=== PATIENT | female | born 1975 | race Caucasian/White ===

== ENCOUNTER → 2016-10-03 | Outpatient (REF) | payer BC ==
[2016-10-03 13:32] LABS: FREE T4 2.08 NG/DL (0.76-1.46)
== END | disposition home or self-care (01) ==
LOC: M LABDRAWP 12:10
PROVIDERS: ATTEND Internal Medicine Endocrinology, Diabetes & Metabolism
DX: E03.9 Hypothyroidism, unspecified (principal)

== ENCOUNTER → 2016-10-03 | Outpatient (REF) | payer BC ==
[2016-10-03 11:33] LABS: ALBUMIN 3.7 GM/DL (3.2-5.2); ALBUMIN/GLOBULIN RATIO 1.16 (1.00-1.93); ALKALINE PHOSPHATASE 45 U/L (45-117); ALT/SGPT 23 U/L (12-78); ANION GAP 11 MEQ/L (8-16); AST/SGOT 17 U/L (15-37); BILIRUBIN,TOTAL 0.6 MG/DL (0.2-1.0); BLOOD UREA NITROGEN 10 MG/DL (7-18); CALCIUM LEVEL 8.9 MG/DL (8.5-10.1); CARBON DIOXIDE LEVEL 20 MEQ/L (21-32); CHLORIDE LEVEL 111 MEQ/L (98-107); CHOLESTEROL LEVEL 166 MG/DL (<200); CREATININE FOR GFR 0.91 MG/DL (0.55-1.02); FREE T4 2.06 NG/DL (0.76-1.46); GLOMERULAR FILTRATION RATE > 60.0 (>58); GLUCOSE, FASTING 91 MG/DL (70-105); POTASSIUM SERUM 3.9 MEQ/L (3.5-5.1); SODIUM LEVEL 142 MEQ/L (136-145); TOTAL PROTEIN 6.9 GM/DL (6.4-8.2); TRIGLYCERIDES LEVEL 200 MG/DL (<150)
== END | disposition home or self-care (01) ==
LOC: M SFHCPLAZ 08:02
PROVIDERS: ATTEND Physician Assistant
DX: E78.4 Other hyperlipidemia (principal); E03.9 Hypothyroidism, unspecified

== ENCOUNTER → 2016-10-10 | Outpatient (REF) | payer BC | END | disposition home or self-care (01) | LOC: M SFHCWAGY 13:22 | PROVIDERS: ATTEND Nurse Practitioner Women's Health | DX: Z12.4 Encounter for screening for malignant neoplasm of cervix (principal) ==

== ENCOUNTER → 2017-01-04 | Outpatient (REF) | payer BC ==
[2017-01-04 18:30] LABS: FREE T4 1.28 NG/DL (0.76-1.46)
== END ==
LOC: M LABDRAWP 16:44
PROVIDERS: ATTEND Internal Medicine Endocrinology, Diabetes & Metabolism
DX: E03.9 Hypothyroidism, unspecified (principal)

== ENCOUNTER → 2017-01-04 | Outpatient (REF) | payer BC | LOC: M SFHCPLAZ 15:44 | PROVIDERS: ATTEND Physician Assistant | DX: R53.83 Other fatigue (principal); M79.1 Myalgia ==

== ENCOUNTER → 2017-01-04 | Outpatient (REF) | payer BC ==
[2017-01-04 17:47] LABS: MEAN CORPUSCULAR HEMOGLOBIN 32.7 pg (27.0-33.0); MEAN CORPUSCULAR HGB CONC 34.7 g/dl (32.0-36.5); MEAN CORPUSCULAR VOLUME 94.3 fl (80.0-96.0); RED CELL DISTRIBUTION WIDTH 11.9 % (11.5-14.5); WHITE BLOOD COUNT 7.8 K/mm3 (4.0-10.0)
[2017-01-04 18:21] LABS: ALBUMIN 3.6 GM/DL (3.2-5.2); ALBUMIN/GLOBULIN RATIO 0.97 (1.00-1.93); BILIRUBIN,DIRECT 0.1 MG/DL (0.0-0.2); BILIRUBIN,TOTAL 0.5 MG/DL (0.2-1.0); TOTAL PROTEIN 7.3 GM/DL (6.4-8.2)
== END ==
LOC: M LABDRAWP 16:43
PROVIDERS: ATTEND Psychiatry & Neurology Psychiatry
DX: Z51.81 Encounter for therapeutic drug level monitoring (principal); Z79.899 Other long term (current) drug therapy; M79.1 Myalgia; R53.83 Other fatigue

== ENCOUNTER → 2017-02-25 | Outpatient (REF) | payer BC ==
[2017-02-25 16:32] LABS: CHOLESTEROL LEVEL 204 MG/DL (<200); GLUCOSE, FASTING 141 MG/DL (70-105); TRIGLYCERIDES LEVEL 410 MG/DL (<150)
== END ==
LOC: M LABDRAWP 15:30
PROVIDERS: ATTEND Psychiatry & Neurology Psychiatry
DX: Z51.81 Encounter for therapeutic drug level monitoring (principal); Z79.899 Other long term (current) drug therapy

== ENCOUNTER → 2017-09-20 | Outpatient (CLI) | payer BC ==
[2017-09-20 20:54] LABS: THYROID STIMULATING HORMONE 0.013 uIU/ML (0.358-3.740)
== END ==
LOC: M WUC 16:25
DX: E03.9 Hypothyroidism, unspecified (principal)
CPT/HCPCS: 84443

== ENCOUNTER → 2017-12-06 | Outpatient (CLI) | payer BC ==
[2017-12-06 20:43] LABS: THYROID STIMULATING HORMONE 0.018 uIU/ML (0.358-3.740)
== END ==
LOC: M WUC 16:57
DX: E03.9 Hypothyroidism, unspecified (principal)

== ENCOUNTER → 2018-02-19 | Outpatient (REF) | payer BC ==
[2018-02-19 16:29] LABS: PROLACTIN 5.3 NG/ML
[2018-02-19 16:31] LABS: FREE T4 1.53 NG/DL (0.76-1.46); THYROID STIMULATING HORMONE 0.046 uIU/ML (0.358-3.740)
== END ==
LOC: M SFHCWAGY 13:56
DX: Z12.4 Encounter for screening for malignant neoplasm of cervix (principal)
CPT/HCPCS: 84146

== ENCOUNTER → 2018-02-24 | Outpatient (CLI) | payer BC | LOC: M RAD 15:04 | DX: R92.8 Other abnormal and inconclusive findings on diagnostic imaging of breast (principal) | CPT/HCPCS: 77066 ==

== ENCOUNTER → 2018-04-01 | Outpatient (CLI) | payer BC ==
[2018-04-01 19:46] LABS: FREE T4 1.12 NG/DL (0.76-1.46)
[2018-04-01 19:46] LABS: THYROID STIMULATING HORMONE 0.982 uIU/ML (0.358-3.740)
== END ==
LOC: M WUC 17:35
DX: E03.9 Hypothyroidism, unspecified (principal)
CPT/HCPCS: 84443

== ENCOUNTER → 2018-05-26 | Outpatient (CLI) | payer BC ==
[~2018-05-26] MED LIST: PROHANCE 279.3MG/ML 15ML VIAL (A9576) As Ordered; PROHANCE 279.3MG/ML 5ML VIAL (A9576) As Ordered
== END ==
LOC: M RAD 11:11
DX: G43.009 Migraine without aura, not intractable, without status migrainosus (principal)
CPT/HCPCS: A9576

== ENCOUNTER → 2018-06-02 | Outpatient (CLI) | payer BC ==
[2018-06-02 13:42] LABS: BASO % 0.4 % (0.0-1.0); EOS # 0.1 10^3/uL (0.0-0.50); EOS % 0.9 % (0.0-3.0); HEMATOCRIT 39.4 % (36.0-47.0); HEMOGLOBIN 13.9 g/dl (12.0-15.5); IMMATURE GRANULOCYTE % 0.7 % (0-3.0); LYMPH # 1.9 10^3/uL (1.5-4.5); LYMPH % 20.7 % (24.0-44.0); MEAN CORPUSCULAR HGB CONC 35.3 g/dl (32.0-36.5); MEAN CORPUSCULAR VOLUME 90.8 fl (80.0-96.0); MONO # 0.6 10^3/uL (0.0-0.8); MONO % 6.2 % (0.0-5.0); NEUTROPHILS # 6.4 10^3/uL (1.8-7.7); NEUTROPHILS % 71.1 % (36.0-66.0); PLATELET COUNT, AUTOMATED 252 10^3/uL (150-450); RED BLOOD COUNT 4.34 10^6/uL (4.00-5.40); RED CELL DISTRIBUTION WIDTH 11.8 % (11.5-14.5)
[2018-06-02 14:00] LABS: ALBUMIN/GLOBULIN RATIO 1.25 (1.00-1.93); ALKALINE PHOSPHATASE 50 U/L (45-117); ALT/SGPT 21 U/L (12-78); ANION GAP 8 MEQ/L (8-16); AST/SGOT 14 U/L (7-37); BILIRUBIN,TOTAL 0.7 MG/DL (0.2-1.0); BLOOD UREA NITROGEN 10 MG/DL (7-18); CALCIUM LEVEL 9.2 MG/DL (8.5-10.1); CARBON DIOXIDE LEVEL 23 MEQ/L (21-32); CHLORIDE LEVEL 109 MEQ/L (98-107); GLOMERULAR FILTRATION RATE > 60.0 (>58); GLUCOSE, FASTING 87 MG/DL (70-100); LIPASE 152 U/L (73-393); POTASSIUM SERUM 4.3 MEQ/L (3.5-5.1); SODIUM LEVEL 140 MEQ/L (136-145); TOTAL PROTEIN 7.2 GM/DL (6.4-8.2)
== END ==
LOC: M WUC 10:30
DX: R10.811 Right upper quadrant abdominal tenderness (principal)
CPT/HCPCS: 83690

== ENCOUNTER → 2018-06-04 | Outpatient (CLI) | payer BC | LOC: M RAD 08:44 | DX: R10.9 Unspecified abdominal pain (principal) | CPT/HCPCS: 76705 ==

== ENCOUNTER → 2018-12-26 | Outpatient (CLI) | payer BC ==
[2018-12-26 17:30] LABS: FREE T4 1.58 NG/DL (0.76-1.46); THYROID STIMULATING HORMONE 0.07 uIU/ML (0.358-3.740)
== END ==
LOC: M WUC 14:46
PROVIDERS: ATTEND Nurse Practitioner Family
DX: E03.9 Hypothyroidism, unspecified (principal)

== ENCOUNTER → 2019-03-11 | Outpatient (REF) | payer BC ==
[2019-03-11 16:14] LABS: FREE T4 0.33 NG/DL (0.76-1.46); THYROID STIMULATING HORMONE 97.3 uIU/ML (0.358-3.740)
== END ==
LOC: M LABDRAW1 14:03
PROVIDERS: ATTEND Nurse Practitioner Family
DX: E03.9 Hypothyroidism, unspecified (principal)

== ENCOUNTER → 2019-04-09 | Outpatient (CLI) | payer BC ==
[2019-04-09 19:55] LABS: FREE T4 0.99 NG/DL (0.76-1.46); THYROID STIMULATING HORMONE 6.53 uIU/ML (0.358-3.740)
== END ==
LOC: M WUC 16:01
PROVIDERS: ATTEND Nurse Practitioner Family
DX: E03.9 Hypothyroidism, unspecified (principal)

== ENCOUNTER → 2019-06-10 | Outpatient (CLI) | payer BC ==
[2019-06-10 20:41] LABS: FREE T4 1.29 NG/DL (0.76-1.46); THYROID STIMULATING HORMONE 0.531 uIU/ML (0.358-3.740)
[2019-06-10 20:42] LABS: PROLACTIN 7.1 NG/ML
== END ==
LOC: M WUC 15:27
PROVIDERS: ATTEND Nurse Practitioner Family
DX: O92.6 Galactorrhea (principal); O99.280 Endocrine, nutritional and metabolic diseases complicating pregnancy, unspecified trimester

== ENCOUNTER → 2019-10-13 | Outpatient (CLI) | payer BC ==
[2019-10-13 12:54] LABS: FREE T4 1.57 NG/DL (0.76-1.46); THYROID STIMULATING HORMONE 15.8 uIU/ML (0.358-3.740)
== END ==
LOC: M WUC 10:19
PROVIDERS: ATTEND Nurse Practitioner Family
DX: E03.9 Hypothyroidism, unspecified (principal)

== ENCOUNTER → 2019-12-31 | Outpatient (REF) | payer BC | LOC: M SFHCWAGY 10:13 | PROVIDERS: ATTEND Nurse Practitioner Women's Health | DX: Z12.4 Encounter for screening for malignant neoplasm of cervix (principal) | CPT/HCPCS: 87624; G0123 ==

== ENCOUNTER → 2020-01-11 | Outpatient (CLI) | payer BC ==
--- NOTE | 2020-01-11 13:50 | REPMRS ---
Patient History The patient states she had a clinical breast exam in December 2019. No known family history of cancer. Reductions of both breasts, 2002. Taking hormonal contraceptives for 16 years. Digital Woman Screen Mammo: January 11, 2020 - Exam #: [id number] Bilateral CC and MLO view(s) were taken. Technologist: Miguelina Remy, Technologist Prior study comparison: February 24, 2018, digital mammo diagnostic bilateral, performed at [facility]. FINDINGS: There are scattered fibroglandular densities. The Volpara volumetric breast density category is:B. There has been no change in the appearance of the mammogram from the prior studies. There is a mild amount of scattered fibroglandular density which is fairly symmetric. There is no interval development of dominant mass, architectural distortion, or grouped microcalcification suggestive of malignancy. 3-D tomosynthesis shows no additional findings. Assessment: BI-RADS/ACR category 1 mammogram. Negative Mammogram. Recommendation Routine screening mammogram of both breasts in 1 year (for women over age 40). This patient's Lifetime Breast Cancer Risk is estimated at 8.7 %. This mammogram was interpreted with the aid of an FDA-approved computer-aided dectection system. Electronically Signed By: Cl Andrews MD 01/11/20 [id number]
== END ==
LOC: M WHC 12:57
PROVIDERS: ATTEND Nurse Practitioner Women's Health
DX: Z12.31 Encounter for screening mammogram for malignant neoplasm of breast (principal)

== ENCOUNTER → 2020-05-24 | Outpatient (CLI) | payer BC ==
[2020-05-24 19:45] LABS: FREE T4 1.98 NG/DL (0.76-1.46); THYROID STIMULATING HORMONE 0.006 uIU/ML (0.358-3.740)
== END ==
LOC: M WUC 17:37
PROVIDERS: ATTEND Nurse Practitioner Family
DX: E03.9 Hypothyroidism, unspecified (principal)

== ENCOUNTER → 2020-08-31 | Outpatient (CLI) | payer BC ==
[2020-08-31 16:51] LABS: FREE T4 1.33 NG/DL (0.76-1.46); THYROID STIMULATING HORMONE 1.82 uIU/ML (0.358-3.740)
[2020-08-31 16:57] LABS: PROLACTIN 4.7 NG/ML
== END ==
LOC: M WUC 11:25
PROVIDERS: ATTEND Nurse Practitioner Family
DX: E03.9 Hypothyroidism, unspecified (principal)

== ENCOUNTER → 2021-02-07 | Outpatient (REF) | payer BC | LOC: M SFHCWAGY 18:44 | PROVIDERS: ATTEND Nurse Practitioner Women's Health | DX: Z12.4 Encounter for screening for malignant neoplasm of cervix (principal) ==

== ENCOUNTER → 2021-02-07 | Outpatient (CLI) | payer BC | LOC: M WHC 14:31 | PROVIDERS: ATTEND Nurse Practitioner Women's Health | DX: Z12.31 Encounter for screening mammogram for malignant neoplasm of breast (principal); Z53.9 Procedure and treatment not carried out, unspecified reason ==

== ENCOUNTER → 2021-02-27 | Outpatient (CLI) | payer BC ==
--- NOTE | 2021-02-27 15:37 | REPMRS ---
Patient History The patient states she had a clinical breast exam in January 2021. No known family history of cancer. Reductions of both breasts, 2001. Taking hormonal contraceptives for 17 years. Patient states no breast complaints today. Patient has signed MRS History Sheet. Digital Woman Screen Mammo: February 27, 2021 - Exam #: [id number] Bilateral CC and MLO view(s) were taken. Technologist: Radha Moreno, Technologist Prior study comparison: January 11, 2020, bilateral digital woman screen mammo performed at [facility]. February 24, 2018, digital mammo diagnostic bilateral, performed at [facility]. FINDINGS: There are scattered fibroglandular densities. Screening. Digital screening (2D) mammography was performed bilaterally in the CC and MLO projections. Additionally, breast tomosynthesis (3D mammography) was performed bilaterally in the CC and MLO projections. Todays exam was compared to the prior exam/exams. By history, the patient has no complaints of a palpable breast abnormality or other significant breast complaints. The breasts are unchanged in size and shape. There are no tremaine-soft tissue densities or spiculated masses. There is no internal architectural distortion. There are no suspicious tremaine-calcific clusters. Skin thickening or nipple retraction is not present. IMPRESSION: BI-RADS Category 2- Benign Findings. There is no evidence of malignant alteration of the breasts. Followup examination recommended in one year. The Volpara volumetric breast density category is B, there are scattered areas of fibroglandular densities. This mammogram was read with the assistance of [employer],an FDA approved computer aided detection system for mammography. The lifetime Tyrer-Cuzick score is 8.6 % Negative x-ray reports should not delay surgical consultation if a dominant or clinically suspicious mass is present. Not all breast cancers can be identified by mammography. Therefore, we recommend that you continue to perform regular breast self-examination and physical examination and then promptly contact your physician of any concerns or changes. Adenosis and dense breasts may obscure an underlying neoplasm. Assessment: BI-RADS/ACR category 2 mammogram. Benign Findings. Recommendation Routine screening mammogram of both breasts in 1 year. Electronically Signed By: Karson Barahona DO 02/27/21 [id number]
== END ==
LOC: M WHC 14:31
PROVIDERS: ATTEND Nurse Practitioner Women's Health
DX: Z12.31 Encounter for screening mammogram for malignant neoplasm of breast (principal)

== ENCOUNTER → 2021-04-17 | Outpatient (CLI) | payer BC ==
[2021-04-17 17:12] LABS: FREE T4 1.06 NG/DL (0.76-1.46); THYROID STIMULATING HORMONE 1.35 uIU/ML (0.358-3.740)
== END ==
LOC: M WUC 11:28
PROVIDERS: ATTEND Nurse Practitioner Family
DX: E03.9 Hypothyroidism, unspecified (principal)

== ENCOUNTER → 2021-09-05 | Outpatient (CLI) | payer BC ==
[2021-09-05 16:55] LABS: FREE T4 0.88 NG/DL (0.76-1.46); THYROID STIMULATING HORMONE 19.2 uIU/ML (0.358-3.740)
== END ==
LOC: M WUC 13:26
PROVIDERS: ATTEND Nurse Practitioner Family
DX: E03.9 Hypothyroidism, unspecified (principal); O92.6 Galactorrhea

== ENCOUNTER → 2022-01-22 | Outpatient (REF) | payer BC ==
[2022-01-22 13:45] LABS: FREE T4 1.29 NG/DL (0.76-1.46); THYROID STIMULATING HORMONE 0.292 uIU/ML (0.358-3.740)
== END ==
LOC: M WUC 12:25
PROVIDERS: ATTEND Nurse Practitioner Family
DX: E03.9 Hypothyroidism, unspecified (principal)

== ENCOUNTER → 2022-04-30 | Outpatient (CLI) | payer BC ==
[2022-04-30 12:21] LABS: FREE T4 1.57 NG/DL (0.76-1.46); THYROID STIMULATING HORMONE 0.142 uIU/ML (0.358-3.740)
[2022-04-30 13:08] LABS: THYROID PEROXIDASE ANTIBODY 47.3 U/ML (<60.0)
== END ==
LOC: M WUC 09:46
PROVIDERS: ATTEND Ophthalmology
DX: E03.9 Hypothyroidism, unspecified (principal)

== ENCOUNTER → 2022-08-22 | Outpatient (CLI) | payer BC ==
[2022-08-22 12:54] LABS: FREE T4 1.12 NG/DL (0.89-1.76); THYROID STIMULATING HORMONE 5.476 uIU/ML (0.55-4.78)
== END ==
LOC: M WUC 10:07
PROVIDERS: ATTEND Nurse Practitioner Family
DX: E03.9 Hypothyroidism, unspecified (principal)

== ENCOUNTER → 2022-12-27 | Outpatient (REF) | payer BC | LOC: M SFHCWAGY 10:19 | PROVIDERS: ATTEND Nurse Practitioner Family | DX: Z01.419 Encounter for gynecological examination (general) (routine) without abnormal findings (principal); Z12.4 Encounter for screening for malignant neoplasm of cervix; Z77.9 Other contact with and (suspected) exposures hazardous to health ==

== ENCOUNTER → 2023-04-29 | Outpatient (CLI) | payer BC ==
[2023-04-30 11:16] LABS: HEMATOCRIT 42.2 % (36.0-47.0); HEMOGLOBIN 14.5 g/dl (12.0-15.5); MEAN CORPUSCULAR HGB CONC 34.4 g/dl (32.0-36.5); MEAN CORPUSCULAR VOLUME 90.4 fl (80.0-96.0); PLATELET COUNT, AUTOMATED 277 10^3/uL (150-450); RED BLOOD COUNT 4.67 10^6/uL (4.00-5.40); WHITE BLOOD COUNT 10.6 10^3/uL (4.0-10.0)
[2023-04-30 11:43] LABS: ALBUMIN 3.9 G/DL (3.2-5.2); ALKALINE PHOSPHATASE 64 U/L (46-116); ALT/SGPT 17 U/L (7.0-40); AST/SGOT 10 U/L (<34); BILIRUBIN,TOTAL 0.4 MG/DL (0.3-1.2); BLOOD UREA NITROGEN 11 MG/DL (9-23); CALCIUM LEVEL 9.3 MG/DL (8.5-10.1); CARBON DIOXIDE LEVEL 26 MMOL/L (20-31); CHLORIDE LEVEL 105 MMOL/L (98-107); CHOLESTEROL LEVEL 196 MG/DL (<200); CHOLESTEROL RISK RATIO 3.23 (<5); CREATININE FOR GFR 0.71 MG/DL (0.55-1.30); GLOMERULAR FILTRATION RATE > 60.0 (>58); GLUCOSE, FASTING 74 MG/DL (60-100); HDL CHOLESTEROL 60.5 MG/DL (>40); LDL CHOLESTEROL 103.1 MG/DL (<100); LUTEINIZING HORMONE 7.1 mIU/ML; NON-HDL-C 135.5 MG/DL; POTASSIUM SERUM 5.1 MMOL/L (3.5-5.1); SODIUM LEVEL 137 MMOL/L (136-145); TOTAL PROTEIN 7.2 G/DL (5.7-8.2); TRIGLYCERIDES LEVEL 162 MG/DL (<150); VITAMIN B12 LEVEL 208 PG/ML (211-911)
[2023-04-30 11:52] LABS: HEMOGLOBIN A1c 4.3 % (4.0-6.0)
== END ==
LOC: M PLAIMG 16:35
PROVIDERS: ATTEND Nurse Practitioner Adult Health
DX: Z00.00 Encounter for general adult medical examination without abnormal findings (principal); M25.562 Pain in left knee; Z13.220 Encounter for screening for lipoid disorders; E53.8 Deficiency of other specified B group vitamins; Z78.0 Asymptomatic menopausal state

== ENCOUNTER → 2023-09-25 | Outpatient (CLI) | payer BC ==
[2023-09-25 18:36] LABS: FREE T4 1.48 NG/DL (0.89-1.76); THYROID STIMULATING HORMONE 0.478 uIU/ML (0.55-4.78)
== END ==
LOC: M PLALAB 16:01
PROVIDERS: ATTEND Nurse Practitioner Family
DX: O92.6 Galactorrhea (principal); E03.9 Hypothyroidism, unspecified

== ENCOUNTER → 2024-02-13 | Outpatient (CLI) | payer BC | LOC: M WHC 14:57 | PROVIDERS: ATTEND Advanced Practice Midwife | DX: Z12.31 Encounter for screening mammogram for malignant neoplasm of breast (principal) ==

== ENCOUNTER → 2024-03-03 | Outpatient (REF) | payer BC ==
[2024-03-03 17:55] LABS: FREE T4 1.02 NG/DL (0.89-1.76); THYROID STIMULATING HORMONE 11.48 uIU/ML (0.55-4.78)
== END ==
LOC: M PLALAB 16:57
PROVIDERS: ATTEND Nurse Practitioner Family
DX: E03.9 Hypothyroidism, unspecified (principal)

== ENCOUNTER → 2024-06-05 | Outpatient (REF) | payer BC ==
[2024-06-05 18:18] LABS: FREE T4 2.24 NG/DL (0.89-1.76)
[2024-06-05 18:19] LABS: THYROID STIMULATING HORMONE 0.026 uIU/ML (0.55-4.78)
== END ==
LOC: M PLALAB 16:57
PROVIDERS: ATTEND Nurse Practitioner Family
DX: E03.9 Hypothyroidism, unspecified (principal)

== ENCOUNTER → 2024-08-07 | Outpatient (CLI) | payer BC ==
[2024-08-07 18:58] LABS: THYROID STIMULATING HORMONE 12.607 uIU/ML (0.55-4.78)
[2024-08-07 19:00] LABS: FREE T4 1.23 NG/DL (0.89-1.76)
== END ==
LOC: M PLALAB 16:24
PROVIDERS: ATTEND Internal Medicine
DX: E03.9 Hypothyroidism, unspecified (principal)

== ENCOUNTER → 2025-03-17 | Outpatient (CLI) | payer BC | LOC: M WHC 08:30 | PROVIDERS: ATTEND Advanced Practice Midwife | DX: Z12.31 Encounter for screening mammogram for malignant neoplasm of breast (principal); R92.323 Mammographic fibroglandular density, bilateral breasts ==

== ENCOUNTER → 2025-06-18 | Outpatient (CLI) | payer BC ==
[2025-06-18 13:47] LABS: ALT/SGPT 28.0 U/L (7.0-40); AST/SGOT 20.0 U/L (<34); CALCIUM LEVEL 9.8 MG/DL (8.5-10.1); CARBON DIOXIDE LEVEL 26.0 MMOL/L (20-31); CHLORIDE LEVEL 107.0 MMOL/L (98-107); CHOLESTEROL LEVEL 268.0 MG/DL (<200); CHOLESTEROL RISK RATIO 5.02 (<5); CREATININE FOR GFR 1.05 MG/DL (0.55-1.30); GLOMERULAR FILTRATION RATE 63.9 (>51); LDL CHOLESTEROL 172.5 MG/DL (<100); NON-HDL-C 214.7 MG/DL; POTASSIUM SERUM 4.4 MMOL/L (3.5-5.1); SODIUM LEVEL 143.0 MMOL/L (136-145); TRIGLYCERIDES LEVEL 211.0 MG/DL (<150)
[2025-06-18 13:49] LABS: FREE T4 0.95 NG/DL (0.89-1.76)
[2025-06-18 13:50] LABS: VITAMIN B12 LEVEL 257.0 PG/ML (211-911)
[2025-06-20 03:17] LABS: SSA SJOGRENS A <1.0 NEG AI (<1.0 NEG); SSB SJOGRENS B <1.0 NEG AI (<1.0 NEG)
== END ==
LOC: M WUC 08:36
PROVIDERS: ATTEND Nurse Practitioner Adult Health
DX: E03.9 Hypothyroidism, unspecified (principal); Z13.220 Encounter for screening for lipoid disorders; N64.52 Nipple discharge; E53.8 Deficiency of other specified B group vitamins; E55.9 Vitamin D deficiency, unspecified; R68.2 Dry mouth, unspecified